=== PATIENT | female | born 1960 | race Caucasian/White ===

== ENCOUNTER 2018-12-11 21:06 | Emergency (ER) | payer BC, OTHER ==
--- NOTE | 2018-12-11 21:13 | PDOC ---
Rapid Medical Evaluation Medical Evaluation: I have performed a brief in-person evaluation of this patient. The patient presents with a chief complaint of: Fell in supermarket injuring R wrist/hand Pertinent physical exam findings: +swelling along dorsal aspect of R hand/wrist , no TTP along R hand, mild TTP along R wrist/forearm I have ordered the following: xray [patient refused pain meds here] The patient will proceed to the ED for further evaluation. 12/11/18 21:10
[2018-12-11 21:16] VITALS: BP 118/77; PULSE 76; TEMP 97; BMI 25.4
--- NOTE | 2018-12-11 21:27 | PDOC ---
History of Present Illness - General Chief Complaint: Injury Stated Complaint: FALL SWOLLEN RISK Time Seen by Provider: 12/11/18 21:10 - History of Present Illness Initial Comments: 12/11/18 21:26 CHIEF COMPLAINT: R wrist pain HISTORY OF PRESENT ILLNESS: 58 yo F presents to ED with pain to R wrist s/p slip and fall. Patient states she was in a supermarket and slipped on water fell onto her outstretched wrist. Patient denies any LOC or injury to any other part of her body. No recent travel or sick contacts. PAST MEDICAL HISTORY: Denies past medical history FAMILY HISTORY: Denies SOCIAL HISTORY: Denies tobacco, alcohol, illicit drug use. SURGICAL HISTORY: Denies ALLERGIES: No known drug allergies REVIEW OF SYSTEMS General/Constitutional: Denies fever or chills. Denies weakness, weight change. HEENT: Denies change in vision. Denies ear pain or discharge. Denies sore throat. Cardiovascular: Denies chest pain or shortness of breath. Respiratory: Denies cough, wheezing, or hemoptysis. Gastrointestinal: Denies nausea, vomiting, diarrhea or constipation. Denies rectal bleeding. Genitourinary: Denies dysuria, frequency, or change in urination. Musculoskeletal: R wrist pain. Denies joint or muscle swelling or pain. Denies neck or back pain. Skin and breasts: Denies rash or easy bruising. Neurologic: Denies headache, vertigo, loss of consciousness, or loss of sensation. PHYSICAL EXAM General Appearance: Well-appearing, appropriately dressed. No apparent distress. HEENT: EOMI, PERRLA, normal ENT inspection, normal voice, TMs normal, pharynx normal. No conjunctival pallor. No photophobia, scleral icterus. Neck: Supple. Trachea midline. No tenderness, rigidity, carotid bruit, stridor , lymphadenopathy, or thyromegaly. Respiratory/Chest: Lungs CTAB. No shortness of breath, chest tenderness, respiratory distress, accessory muscle use. No crackles, rales, rhonchi, stridor , wheezing, dullness Cardiovascular: RRR. S1, S2. No JVD, murmur, bradycardia, tachycardia. Vascular Pulses: Dorsalis-Pedis (R): 2+, Dorsalis-Pedis (L): 2+ Gastrointestinal/Abdominal: Normal bowel sounds. Abdomen soft, non-distended. No tenderness or rebound tenderness. No organomegaly, pulsatile mass, guarding , hernia, hepatomegaly, splenomegaly. Musculoskeletal/Extremities: Swelling to dorsal aspect of R hand without tenderness, erythema and mild swelling and TTP to posterior aspect of distal forearm. Full ROM to R wrist, no snuffbox tenderness. Normal inspection. FROM of all extremities, normal capillary refill. Pelvis Stable. No CVA tenderness. No tenderness to extremities, pedal edema, swelling, erythema or deformity. Integumentary: Appropriate color, dry, warm. 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 Fully oriented, alert. Appropriate mood/affect. Motor strength 5/5. No appreciable EOM palsy, facial droop or sensory deficit. 12/11/18 21:29 Past History - Past Medical History Allergies/Adverse Reactions: Allergies Allergy/AdvReac Type Severity Reaction Status Date / Time No Known Allergies Allergy Verified 12/11/18 21:16 Home Medications: Ambulatory Orders Ibuprofen 800 mg PO TID #30 tablet 12/11/18 COPD: No - Suicide/Smoking/Psychosocial Hx Smoking History: Current every day smoker Number of Cigarettes Smoked Daily: 20 Information on smoking cessation initiated: No *Physical Exam - Vital Signs Last Vital Signs Temp Pulse Resp BP Pulse Ox 97 F L 76 18 118/77 98 12/11/18 21:11 12/11/18 21:11 12/11/18 21:11 12/11/18 21:11 12/11/18 21:11 Medical Decision Making - Medical Decision Making 12/11/18 21:33 58 yo F presents to ED with pain to R wrist s/p slip and fall. -wrist x-ray 12/11/18 22:09 non displaced fracture to distal radius seen on x-ray. volar wrist splint applied. NSAIDS for pain. Patient states she has orthopedist to f/u with and will call him tomorrow. Advised pt of signs and symptoms for return to ER; patient verbalized understanding and agrees to plan. *DC/Admit/Observation/Transfer Diagnosis at time of Disposition: Wrist fracture, right Qualifiers: Encounter type: initial encounter Fracture type: closed Qualified Code(s): S62.101A - Fracture of unspecified carpal bone, right wrist, initial encounter for closed fracture - Discharge Dispostion Disposition: HOME Condition at time of disposition: Stable Decision to Admit order: No - Prescriptions Prescriptions: Ibuprofen 800 mg PO TID #30 tablet - Referrals Referrals: Scott Kinney [Primary Care Provider] - Will Romero MD [Staff Physician] - - Patient Instructions Printed Discharge Instructions: DI for Wrist Fracture Additional Instructions: Please follow up with orthopedics tomorrow as discussed. If you develop any loss of sensation or change in color to your fingers, or you develop significant swelling or pressure to your hand, wrist, or arm, or any new or worsening symptoms, please return to the ER immediately. - Post Discharge Activity
== END 2018-12-11 22:17 | disposition home or self-care (01) ==
LOC: JERFT 21:06
PROC: 2W3CX1Z Immobilization of Right Lower Arm using Splint (ICD-10-PCS; principal; 2018-12-11)
DX: S52.591A Other fractures of lower end of right radius, initial encounter for closed fracture (principal); W01.0XXA Fall on same level from slipping, tripping and stumbling without subsequent striking against object, initial encounter; Y93.89 Activity, other specified; Y92.512 Supermarket, store or market as the place of occurrence of the external cause; Y99.8 Other external cause status
CPT/HCPCS: 73090-TC-RT-FY; 73110-TC-RT-FY; 73130-TC-RT-FY; 99281-25

== ENCOUNTER 2021-02-04 07:45 | Day surgery (SDC) | payer BC ==
[2021-01-29 13:18] VITALS: BMI 24.6
[2021-02-04] MEDS ORDERED: PROPOFOL 20 ML ONE ×4 (07:50)
[2021-02-04] MEDS ORDERED: LIDOCAINE HCL/PF 2% SDV 5ML VIAL ONE (07:50)
[2021-02-04 09:12] VITALS: BP 110/57; PULSE 60; TEMP 98
== END 2021-02-04 09:40 | disposition home or self-care (01) ==
LOC: FASU-ENDO 07:45
PROVIDERS: ATTEND Internal Medicine Gastroenterology
PROC: 0DJD8ZZ Inspection of Lower Intestinal Tract, Via Natural or Artificial Opening Endoscopic (ICD-10-PCS; principal; 2021-02-04 08:38)
DX: Z12.11 Encounter for screening for malignant neoplasm of colon (principal)